=== PATIENT | female | born 1960 | race Caucasian/White ===

== ENCOUNTER → 2021-03-28 | Outpatient (CLI) | payer MEDICARE, OTHER ==
[~2021-03-28] MED LIST: BUSPAR 10MG10 MG PO; COZAAR 50MG TAB50 MG PO; CYMBALTA 20 MG20 MG PO; DITROPAN 5 MG TA5 MG PO; DOCUSATE SODIU250 MG PO; HYDROCODONE-AC1 EACH PO; IBUPROFEN600 MG PO; KLONOPIN TAB 00.5 MG PO; QUETIAPINE FUM100 MG PO
[2021-03-28 13:24] LABS: HEMOGLOBIN 12.8 gm/dl (12.3-15.3); RED BLOOD COUNT 4.49 M/UL (4.00-5.10); WHITE BLOOD COUNT 3.8 K/UL (4.5-11.0)
[2021-03-28 13:44] LABS: BUN/CREATININE RATIO 37 (0-10)
== END ==
LOC: OPSV2 09:00
PROVIDERS: Obstetrics & Gynecology
DX: Z01.818 Encounter for other preprocedural examination (principal); N81.9 Female genital prolapse, unspecified; R91.8 Other nonspecific abnormal finding of lung field; R94.31 Abnormal electrocardiogram [ECG] [EKG]
CPT/HCPCS: 36415; 71046; 80048; 81001; 85025; 93005

== ENCOUNTER 2021-04-02 06:42 | Day surgery (SDC) | payer MEDICARE, OTHER ==
[~2021-04-02] VITALS: Ht 170.2 cm; Wt 67.1 kg
[2021-04-02] MEDS ORDERED: COZAAR 50MG TAB50 MG PO (07:33)
[2021-04-02] MEDS ORDERED: QUETIAPINE FUM100 MG PO (07:33)
[2021-04-02] MEDS ORDERED: CYMBALTA 20 MG20 MG PO (07:34)
[2021-04-02] MEDS ORDERED: KLONOPIN TAB 00.5 MG PO (07:34)
[2021-04-02] MEDS ORDERED: BUSPAR 10MG10 MG PO (07:34)
[2021-04-02] MEDS ORDERED: DITROPAN 5 MG TA5 MG PO (08:44)
[2021-04-02] MEDS ORDERED: HYDROCODONE-AC1 EACH PO (08:44)
[2021-04-02] MEDS ORDERED: IBUPROFEN600 MG PO (08:44)
[2021-04-02] MEDS ORDERED: DOCUSATE SODIU250 MG PO (08:44)
[2021-04-02 15:48] LABS: HEMOGLOBIN 11.1 gm/dl (12.3-15.3)
[2021-04-03 07:28] LABS: HEMOGLOBIN 10.1 gm/dl (12.3-15.3)
--- NOTE | 2021-04-03 14:21 | NUR ---
1130: PATIENT REPORTS UNABLE TO VOID AFTER RN ASSISTED PATIENT TO BATHROOM, PATIENT REPORTED TO [employer] THAT ABRAHAM DID VOID. DR BUCIO UPDATED WITH PATIENT C/O INABILITY TO VOID. ORDER RECEIVED TO ANCHOR DOMINIQUE CATHETER IF PATIENT UNABLE TO VOID. 1420: PATIENT STILL UNABLE TO VOID, RN ANCHORED # 18 BULGARIAN DOMINIQUE CATHETER TO BEDSIDE DRAIN BAG, 200 ML CLEAR YELLOW URINE RETURNED. PATIENT TOLERATED WELL. 1430: PATIENT VERBALIZED UNDERSTANDING OF DOMINIQUE CARE, WIPING FRONT TO BACK, NO TUB BATHS UNTIL DR BUCIO SAYS ITS OK. PATIENT SHOWN HOE TO EMPTY DOMINIQUE BAG, WITH VERBAL UNDERSTANDING NOTED.
== END 2021-04-03 14:00 | disposition home or self-care (01) ==
LOC: OR 06:42 → EDSTATUS 08:00 → MED SURG 4 13:44 → OR 04-03 14:00
PROVIDERS: Obstetrics & Gynecology
PROC: 0UT74ZZ Resection of Bilateral Fallopian Tubes, Percutaneous Endoscopic Approach (ICD-10-PCS; principal; 2021-04-02 08:00)
PROC: 0JQC0ZZ Repair Pelvic Region Subcutaneous Tissue and Fascia, Open Approach (ICD-10-PCS; principal; 2021-04-02 08:00)
PROC: 0UT94ZZ Resection of Uterus, Percutaneous Endoscopic Approach (ICD-10-PCS; principal; 2021-04-02 08:00)
PROC: 0UT24ZZ Resection of Bilateral Ovaries, Percutaneous Endoscopic Approach (ICD-10-PCS; principal; 2021-04-02 08:00)
PROC: 0USG4ZZ Reposition Vagina, Percutaneous Endoscopic Approach (ICD-10-PCS; principal; 2021-04-02 08:00)
PROC: 0TSC4ZZ Reposition Bladder Neck, Percutaneous Endoscopic Approach (ICD-10-PCS; principal; 2021-04-02 08:00)
PROC: 0UQF0ZZ Repair Cul-de-sac, Open Approach (ICD-10-PCS; principal; 2021-04-02 08:00)
DX: N81.6 Rectocele (principal); N81.10 Cystocele, unspecified; N72 Inflammatory disease of cervix uteri; N80.0 Endometriosis of uterus; D26.1 Other benign neoplasm of corpus uteri; N83.312 Acquired atrophy of left ovary; N83.311 Acquired atrophy of right ovary; N39.46 Mixed incontinence; I10 Essential (primary) hypertension; K59.00 Constipation, unspecified; Z79.899 Other long term (current) drug therapy; Z98.51 Tubal ligation status; Z20.822 Contact with and (suspected) exposure to COVID-19
CPT/HCPCS: 36415; 85014; 85018; C1769; C1771; J0690; J1100; J1885; J2001; J2250; J2370; J2405; J2704; J2710; J3010; J7050; J7120

== ENCOUNTER → 2021-11-15 | Day surgery (SDC) | payer MEDICARE ==
[~2021-11-15] MED LIST changes: +BACLOFEN10 MG PO; +CIPRO500 MG/5 M PO; +CLONAZEPAM1 MG PO; +DIVIGEL1 GM TD; +ESTROGEL50 GM TD; +LACTULOSE10 GM/15 M PO; +LOSARTAN POTASS50 MG PO; +NEURONTIN300 MG PO; +SEROQUEL100 MG PO; +SOLIFENACIN SUC10 MG PO
[2021-11-15 10:01] LABS: HEMOGLOBIN 12.3 gm/dl (12.3-15.3); RED BLOOD COUNT 4.45 M/UL (4.00-5.10)
[2021-11-15 10:20] LABS: BUN/CREATININE RATIO 30 (0-10)
== END | disposition home or self-care (01) ==
LOC: OR 09:08
PROVIDERS: Obstetrics & Gynecology
PROC: 0TSD0ZZ Reposition Urethra, Open Approach (ICD-10-PCS; principal; 2021-11-15 11:15)
DX: T83.89XA Other specified complication of genitourinary prosthetic devices, implants and grafts, initial encounter (principal); N39.46 Mixed incontinence; I10 Essential (primary) hypertension; R91.1 Solitary pulmonary nodule; Z20.822 Contact with and (suspected) exposure to COVID-19; Z86.73 Personal history of transient ischemic attack (TIA), and cerebral infarction without residual deficits; Z79.2 Long term (current) use of antibiotics; Z79.899 Other long term (current) drug therapy; Z90.710 Acquired absence of both cervix and uterus; Y83.2 Surgical operation with anastomosis, bypass or graft as the cause of abnormal reaction of the patient, or of later complication, without mention of misadventure at the time of the procedure
CPT/HCPCS: 71045; 80048; 81001; 85025; 93005; C1769; C1771; J0690; J1100; J1885; J2001; J2250; J2405; J2704; J3010; J7040; J7120